=== PATIENT | female | born 1965 | race Caucasian/White ===

== ENCOUNTER 2018-05-08 08:34 | Day surgery (SDC) | payer OTHER ==
[2018-05-08] VITALS (13 sets, daily range): BP systolic 103–124; BP diastolic 65–74; PULSE 62–85; RESP 14–24; Ht 175.3 cm; Wt 76.1 kg
[~2018-05-08] VITALS: Ht 175.3 cm; Wt 76.1 kg
[~2018-05-08 08:34] MED LIST: ATOR10TA65 PO
--- NOTE | 2018-05-08 11:43 | PREAC ---
Date/Time of Note Date/Time of Note DATE: 05/08/18 TIME: 11:42 Anesthesia Eval and Record Evaluation Time Pre-Procedure Interview DATE: 05/08/18 TIME: 11:42 Age 52 Sex female NPO: 8 hrs Preoperative diagnosis Degenerative joint disease, left great toe Planned procedure Cheilectomy Past Medical History Past Medical History: Includes Cardio: Dyslipidemia Surgery & Anesthesia Issues No known issue Meds Anticoagulation: No Beta Wendy within 24 hr: No Reason Beta Wendy not given: Pt. not on B-Wendy Reported Medications Atorvastatin (Atorvastatin) 10 Mg Tablet, 2.5 MG PO twice a week 05/05/18 Meds reviewed: Yes Allergies Coded Allergies: Latex, Natural Rubber (Verified Allergy, Unknown, 05/08/18) adhesive tape (Verified Allergy, Unknown, 05/08/18) Allergies Reviewed: Yes Labs/Studies Labs Reviewed: Reviewed by anesthesiologist test: Negative Pre-procedure Exam Last vitals Vital Signs Date Temp Pulse Resp B/P (MAP) Pulse Ox O2 O2 Flow FiO2 Time Delivery Rate 05/08/18 98.9 82 16 124/67 98 Room Air 09:32 (86) Airway: Adequate mouth opening Mallampati: Mallampati I Teeth: Normal Lung: Normal Heart: Normal ASA Physical Status ASA physical status: 2 Emergency: None Planned Anesthetic General/MAC: ETT Planned Pain Management Single shot nerve block, Parenteral pain med Pre-operative Attestations Prior to commencing anesthesia and surgery, the patient was re-evaluated, there was verification of: *The patient's identity *The results of appropriate recent lab work and preoperative vital signs *The above evaluation not changing prior to induction *Anesthetic plan, risk benefits, alternative and complications discussed with patient/family; questions answered; patient/family understands, accepts and wishes to proceed. ANGEL PITTMAN MD May 08, 2018 11:43
[2018-05-08] MEDS ORDERED: POVIDONE IODINE 10% 28.4 GM OINT ONE (11:56)
[2018-05-08] MEDS ORDERED: ROPIVACAINE 0.5 % 30 ML VIAL ONE ×2 (11:56→12:12)
[2018-05-08] MEDS ORDERED: GLYCOPYRROLATE 0.4 MG INJ ONE ×2 (12:12→13:34)
[2018-05-08] MEDS ORDERED: PROPOFOL 20 ML ONE (12:12)
[2018-05-08] MEDS ORDERED: SUCCINYLCHOLINE CHLORIDE 100 MG/5 ML SYG IV ONE (12:12)
[2018-05-08] MEDS ORDERED: ROCURONIUM 50 MG INJ ONE ×2 (12:12→13:52)
[2018-05-08] MEDS ORDERED: NEOSTIGMINE 3 MG/3 ML SYRINGE ONE ×2 (12:12→13:34)
[2018-05-08] MEDS ORDERED: LIDOCAINE 2% (SDV) 5 ML INJ ONE (12:12)
[2018-05-08] MEDS ORDERED: CEFAZOLIN 1 GM INJ ONE ×2 (12:42→13:34)
[2018-05-08] MEDS ORDERED: ONDANSETRON 4 MG INJ ONE (12:42)
[2018-05-08] MEDS ORDERED: METOCLOPRAMIDE 10 MG INJ ONE (12:42)
[2018-05-08] MEDS ORDERED: OXYCODONE/ACETAMINOPHEN (5/325) TAB PO PRN ×4 (14:30→15:00)
[2018-05-08] MEDS ORDERED: HYDROmorphONE 1 MG/5 ML IV SYRINGE IV PRN ×3 (14:30)
[2018-05-08] MEDS ORDERED: MIDAZOLAM 1 MG/ML 2 ML INJ IV PRN (14:30)
[2018-05-08] MEDS ORDERED: LABETALOL HCL 20MG INJ IV PRN (14:30)
[2018-05-08] MEDS ORDERED: MEPERIDINE 25 MG INJ IV PRN (14:30)
[2018-05-08] MEDS ORDERED: EPHEDrine SULFATE 50 MG/5 ML SYG IV PRN (14:30)
[2018-05-08] MEDS ORDERED: METOCLOPRAMIDE 10 MG INJ IV PRN (14:30)
[2018-05-08] MEDS ORDERED: hydrALAzine 20 MG INJ IV PRN (14:30)
[2018-05-08] MEDS ORDERED: ONDANSETRON 4 MG INJ IV PRN ×2 (14:30→15:00)
[2018-05-08] MEDS ORDERED: DIPHENHYDRAMINE 50 MG INJ IV PRN (14:30)
[2018-05-08] MEDS ORDERED: SOD CHLORIDE 0.9% 1,000 ML IV SCH (14:35)
--- NOTE | 2018-05-08 14:38 | OPPN ---
Date/Time of Note Date/Time of Note DATE: 05/08/18 TIME: 14:36 Operative Report Preoperative Diagnosis Left great toe degenerative joint disease Postoperative Diagnosis same Operation/Procedure Performed Left MTP chilectomy and insertion of Cartiva graft Surgeon see signature line food trades assistants DO Elver Anesthesia: general, MAC Estimated blood loss: minimal Transfusion Required none Specimen none Grafts/Implants none Complications none SERGE GANN MD May 08, 2018 14:38
[2018-05-08] MEDS ORDERED: CEFAZOLIN 1 GM/50 ML (PMX) 50 ML IVPB SCH (15:00)
[2018-05-08] MEDS ORDERED: morphine 2 MG INJ IV PRN (15:00)
--- NOTE | 2018-05-08 15:41 | PAC ---
Date/Time of Note Date/Time of Note DATE: 05/08/18 TIME: 15:40 Post-Anesthesia Notes Post-Anesthesia Note Last documented vital signs Vital Signs Date Temp Pulse Resp B/P (MAP) Pulse Ox O2 O2 Flow FiO2 Time Delivery Rate 05/08/18 98.9 82 16 124/67 98 Room Air 09:32 (86) Activity: WNL Respiratory function: WNL Cardiovascular function: WNL Mental status: Baseline Pain reasonably controlled: Yes Hydration appropriate: Yes Nausea/Vomiting absent: Yes ANGEL PITTMAN MD May 08, 2018 15:41
--- NOTE | 2018-05-08 17:47 | OPR ---
DATE OF OPERATION: 05/08/2018 PREOPERATIVE DIAGNOSES: 1. Degenerative joint disease of left great toe metatarsophalangeal joint. 2. Large osteochondral loose body of left great toe metatarsophalangeal joint. POSTOPERATIVE DIAGNOSES: 1. Degenerative joint disease of left great toe metatarsophalangeal joint. 2. Large osteochondral loose body of left great toe metatarsophalangeal joint. 3. Synovitis. OPERATIONS PERFORMED: 1. Cheilectomy, left great toe metatarsophalangeal joint. 2. Synovectomy removal of loose body. 3. Insertion of Cartiva cartilage implant in the left great toe metatarsophalangeal joint. SURGEON: Serge Lucia MD CURB BUILDER: Ruben Raya ANESTHESIA: General with popliteal block. TOURNIQUET TIME: 70 minutes. DESCRIPTION OF PROCEDURE: The patient was taken to operating room and placed in supine position. Satisfactory general anesthesia was administered after popliteal block was given. A 2 grams Ancef were given intravenously. The left foot was prepped and draped in usual manner. Dorsomedial incision was made. Dissection was carried down through subcutaneous tissue. Neurovascular bundles were elevated medially and laterally. An incision was made dorsomedially to the capsule. The capsule was peeled off the proximal phalanx and distal aspect of the metatarsal head and neck. The entire joint was exposed. There was a large osteochondral loose body blocking the dorsal aspect of the joint. This was excised sharply. There was grade IV chondromalacia on the dorsal central aspect of the metatarsal head, thinning of the proximal phalanx, osteophytes rimming the proximal phalanx as well as rimming the metatarsal head. Osteophytes removed from the proximal phalanx circumferentially. Power rasp was used to smooth and contour the edges. The osteophytes were removed with a rongeur also from the metatarsal head and neck region. A power rasp was used to smooth and contour the edges. Wounds were irrigated with antibiotic solution. Synovectomy performed of the joint. We identified the target implant position using the concave end of the hollow tube. We had good bone more than 2 mm circumferentially. Using the guide pin through the hollow tube, the guide pin was placed in slight dorsally on the joint in the area of the maximum loss of cartilage. It was placed perpendicular to the metatarsal head. It was checked in AP and lateral fluoroscopic views and appeared to be in appropriate position. The cannulated drill bit was used to drill the hole; however, we left it so that the implant would be 2.5 mm proud particularly dorsally and at least a 0.5 to 2 mm laterally. We carefully checked repeatedly and measured with a ruler. Once the appropriate depth, the wounds were irrigated with antibiotic solution. All bony debris was removed. The Cartiva implant was taken from the sterile packaging and the introducer was moistened with sterile saline. The implant was put in the introducer twice and then the introducer tube with the lip was placed in the implant site at the exact position we wanted. We carefully pressed down on rate inserter while maintaining the distal end of the implant and put the implant in the metatarsal head defect. When we were done, the implant was appropriately proud 2.5 mm dorsally and 0.5 mm plantarly. The MTP joint had good motion and appeared to be stable and well aligned on the AP and lateral radiographs. Final radiographs were done which showed the implant in good position. Remaining osteophytes and debris was removed. Wounds were irrigated with antibiotic solution. There was no major restriction or limitation of joint motion except what had been there before. The capsule was repaired with a running 3-0 undyed Vicryl loosely. The tourniquet was released. Bleeders were coagulated. Wounds were irrigated with antibiotic solution. Skin was closed with 5-0 black nylon. Saphenous nerve block was done with 0.5% ropivacaine. Compression dressing was applied as well as a postop shoe and the patient was brought to recovery room in stable condition. Interprocedure sponge and needle count was correct. The patient tolerated procedure well. Dictated By: SERGE VENEGAS/PRERNA Conf#: [id number] DID#: [id number] GERI
== END 2018-05-08 18:10 | disposition home or self-care (01) ==
LOC: SDS 08:34
PROVIDERS: ATTEND Orthopaedic Surgery
DX: M19.072 Primary osteoarthritis, left ankle and foot (principal); M65.872 Other synovitis and tenosynovitis, left ankle and foot; E78.5 Hyperlipidemia, unspecified
CPT/HCPCS: 28750; 73660; 84703; J0690; J2405; J2710; J2765; J2795